=== PATIENT | female | born 1955 | race Caucasian/White ===

== ENCOUNTER 2020-01-23 01:24 | Emergency (ER) | payer OTHER ==
[~2020-01-23] VITALS: Ht 165.1 cm; Wt 89.8 kg
[2020-01-23 01:31] VITALS: Ht 165.1 cm; Wt 89.8 kg
[2020-01-23 02:00] VITALS: BP 127/91
== END 2020-01-23 02:00 | disposition other institution (70) ==
LOC: ED 01:24
DX: Z02.89 Encounter for other administrative examinations (principal)